=== PATIENT | female | born 1940 | race Caucasian/White ===

== ENCOUNTER → 2023-02-08 13:09 | Outpatient (CLI) | payer MEDICARE, OTHER, SELFPAY ==
--- NOTE | ~2023-02-08 | MR_ITS ---
EXAMINATION: MR lumbar spine wo con DATE: 02/08/2023 13:49 INDICATION: Lumbar radiculopathy TECHNIQUE: Magnetic resonance imaging (MRI) of the lumbar spine was performed without intravenous con trast. Sequences included sagittal T2-weighted FSE, sagittal T2-weighted FS FSE, sagittal T1-weighted FSE, and axial T2-weighted FSE. COMPARISON: None FINDINGS: 25 degree thoracolumbar levoscoliosis measured between T11 and L3 with 20 degree dextroscoliosis betw een L3 and S1. 2-3 mm retrolisthesis L1 and L2, L2 on L3, L3 on L4, L4 on L5 and L5 on S1. T11 burst fracture with one third anterior vertebral body height loss, prominent marrow edema in the vertebral body surrounding the linear low signal intensity fracture line and with 2 mm retropulsion of a small portion of the central posterior wall of the vertebral body. Lumbar vertebral body heights are normal . There is severe disc height loss with associated degenerative fibrovascular endplate changes from T 12-L1 through L5-S1. Moderate disc height loss at T9-T10. Moderate left-sided disc height loss at T10 -T11. The conus medullaris terminates at L1. There is normal signal in the caudal spinal cord. Small amount of paravertebral edema surrounding the T11 compression fracture. The following disc levels are specifically discussed: T12-L1: Disc is bulging. There is moderate bilateral facet joint osteoarthritis. There is moderate ri ght and mild left neural foraminal stenosis. There is mild central canal stenosis. L1-L2: Disc is bulging. There is moderate left and severe right facet joint osteoarthritis. There is mild left and moderate right neural foraminal stenosis. There is mild central canal stenosis. L2-L3: Posterior disc osteophyte complex. There is moderate left and severe right facet joint osteoar thritis. There is moderate right and mild to moderate left neural foraminal stenosis. There is mild c entral canal stenosis. L3-L4: Posterior disc osteophyte complex. There is moderate right and severe left facet joint osteoar thritis. There is moderate bilateral neural foraminal stenosis. There is mild central canal stenosis. L4-L5: Disc is bulging. There is mild right and severe left facet joint osteoarthritis. There is mild to moderate right and moderate left neural foraminal stenosis. There is mild central canal stenosis. L5-S1: Disc is bulging. There is mild to moderate right and severe left facet joint osteoarthritis. T here is moderate right and moderate to severe left neural foraminal stenosis. There is mild central c anal stenosis. IMPRESSION: 1. Recent-appearing T11 burst fracture with one third anterior vertebral body height loss and 2 mm re tropulsion. 2. Moderate S-shaped scoliosis of the lumbar and lower thoracic spine with severe lumbar and moderate lower thoracic spondylosis. Reviewed, dictated and finalized at location L. IMPRESSION: 1. Recent-appearing T11 burst fracture with one third anterior vertebral body h eight loss and 2 mm retropulsion. 2. Moderate S-shaped scoliosis of the lumbar and lower thoracic spine with margaret re lumbar and moderate lower thoracic spondylosis.
== END ==
PROVIDERS: PCP Registered Nurse; Referring Provider Anesthesiology Pain Medicine; Visit Provider Anesthesiology
DX: S22.081A Stable burst fracture of T11-T12 vertebra, initial encounter for closed fracture (principal); X58.XXXA Exposure to other specified factors, initial encounter; M47.26 Other spondylosis with radiculopathy, lumbar region
CPT/HCPCS: 72148

== ENCOUNTER 2023-03-11 10:45 | Outpatient (CLI) | payer MEDICARE, SELFPAY ==
--- NOTE | 2023-03-11 11:17 | ECG_ITS ---
Measurements Intervals Dyer Rate: 77 P: 12 VT: 174 QRS: -35 QRSD: 88 T: -17 QT: 366 QTc: 415 Interpretive Statements SINUS RHYTHM LEFT AXIS DEVIATION POSSIBLE LEFT ATRIAL ENLARGEMENT POOR R WAVE PROGRESSION, ANTERIOR LEADS BORDERLINE T WAVE ABNORMALITY- ANTEROLAT/INF LEADS BASELINE ARTIFACT- I, II, III, AVR, V1 BORDERLINE ECG NO PREVIOUS ECG AVAILABLE FOR COMPARISON Electronically Signed On 03-11-2023 11:45:33 CDT by Nabeel Malik D.O.
[2023-03-11 11:34] LABS: Appearance Urine Clear (Clear); Bacteria Urine None Seen /hpf; Bilirubin Urine Negative (Negative); Blood Urine Negative (Negative); Color Urine Yellow (Yellow); Glucose Urine UA Negative (Negative); Hyaline Casts Urine Present /lpf; Ketones Urine Trace mg/dL (Negative); Leukocyte Esterase Ur 1+ LEU/UL (NEGATIVE); Nitrate Urine Negative (Negative); Protein Urine Negative (Negative); RBC Urine 0-2 /hpf (0-2); Specific Grav Ur 1.031 (1.001-1.035); Squamous Epithelial Cell Urine Occasional /hpf (Few); WBC Urine 0-5 /hpf (0-3); pH Urine 5.5 (5.0-9.0)
[2023-03-11 11:40] LABS: Prothrombin Time 13.7 Seconds (11.1-14.7)
[2023-03-11 11:41] LABS: CRP < 0.5 mg/dL (<1.0); Partial Thromboplastin Time 25.5 SECONDS (22.3-36.8)
[2023-03-11 11:42] LABS: Add Urine Microscopic? YES
[2023-03-11 12:34] LABS: Erythrocyte Sedimentation Rate 14 mm/hr (0-20)
== END 2023-03-11 10:46 | disposition home or self-care (01) ==
PROVIDERS: PCP Registered Nurse; Visit Provider Anesthesiology
DX: A79.1 Rickettsialpox due to Rickettsia akari (principal); I25.10 Atherosclerotic heart disease of native coronary artery without angina pectoris; M54.16 Radiculopathy, lumbar region; R07.89 Other chest pain; R94.31 Abnormal electrocardiogram [ECG] [EKG]
CPT/HCPCS: 36415; 81001; 85610; 85652; 85730; 86140; 93005

== ENCOUNTER 2023-03-18 09:14 | Outpatient (CLI) | payer MEDICARE, SELFPAY ==
--- NOTE | ~2023-03-18 | MR_ITS ---
MRI of the thoracic spine Clinical History: Radiculopathy Technique: Axial T2-weighted and gradient images, and sagittal T1-weighted, T2-weighted, and STIR sue ges were acquired. COMPARISON: MR of the lumbar spine dated 02/08/2023 Findings: There is acute to subacute compression fracture of T11, similar to prior exam, probable mil d progressive interval loss of height. There is a mild, acute compression fracture of T12, with minim al loss of height, new from prior exam. There is a mild chronic compression deformity of T2, without marrow edema. No other fracture or subluxation seen in the thoracic spine. There is partial fusion across the T1-T2 disc space. There is mild disc bulge at T3-T4 and T4-T5, wit hout canal stenosis or cord compression. There is severe degenerative disc narrowing throughout most of the thoracic spine. There are several additional scattered mild disc bulges. No eugene spinal canal stenosis or cord compression at any level. There is probable severe bilateral n eural foraminal narrowing at T10-T11, T11-T12, and T12-L1. There are facet joint degenerative changes at these levels. No abnormal signal seen in the spinal cord. Paravertebral soft tissues are unremarkable. Impression: Acute to subacute moderate compression fracture of T11, with mild progressive loss of height since 02/08/2023. New, mild acute compression fracture of T12. Degenerative spondylosis, as above, with probably severe bilateral neural foraminal narrowing at T10- T11, T11-T12, and T12-L1. Reviewed, dictated and finalized at [facility]. Impression: Acute to subacute moderate compression fracture of T11, with mild progressive l oss of height since 02/08/2023. New, mild acute compression fracture of T12. Degenerative spondylosis, as above, with probably severe bilateral neural dayna inal narrowing at T10-T11, T11-T12, and T12-L1.
== END 2023-03-18 09:15 | disposition home or self-care (01) ==
PROVIDERS: PCP Registered Nurse; Visit Provider Anesthesiology
DX: M47.24 Other spondylosis with radiculopathy, thoracic region (principal)
CPT/HCPCS: 72146

== ENCOUNTER 2023-03-24 16:04 | Outpatient (CLI) | payer MEDICARE, SELFPAY ==
--- NOTE | ~2023-03-24 | XR_ITS ---
XR chest 2V DATE: 03/24/2023 16:30 INDICATION: Age-related osteoporosis TECHNIQUE: PA and lateral views COMPARISON: None FINDINGS: Cardiomegaly. Aortic calcification. No hilar or mediastinal enlargement. Minimal atelectasis at the lung bases. The lungs are otherwise clear. No pleural effusion or pneumothorax. Diffuse osteopenia. Right glenohumeral joint replacement. Diffuse osteopenia. Fracture deformities at T11 and T12, with vertebroplasty at T11. Degenerative changes of the cervical, thoracic and lumbar spine. IMPRESSION: Mild bibasilar atelectasis Cardiomegaly, aortic atherosclerosis Reviewed, dictated and finalized at location A.
== END 2023-03-24 16:05 | disposition home or self-care (01) ==
PROVIDERS: PCP Registered Nurse; Visit Provider Anesthesiology
DX: M80.08XA Age-related osteoporosis with current pathological fracture, vertebra(e), initial encounter for fracture (principal); I51.7 Cardiomegaly; I70.0 Atherosclerosis of aorta; J98.11 Atelectasis
CPT/HCPCS: 71046

== ENCOUNTER 2023-10-26 15:40 | Outpatient (CLI) | payer MEDICARE, SELFPAY ==
--- NOTE | ~2023-10-26 | XR_ITS ---
EXAMINATION: XR hip RT min 2V DATE: 10/26/2023 15:55 INDICATION: Right hip pain. TECHNIQUE: 2 views of right hip were obtained. COMPARISON: None. FINDINGS: Bone alignment is normal. No fracture. There is mild right hip osteoarthritis. There is sev ere lumbar spondylosis. IMPRESSION: 1. Mild right hip osteoarthritis. Reviewed, dictated and finalized at location E.
== END 2023-10-26 15:41 ==
LOC: MICIMG 15:42
PROVIDERS: PCP Registered Nurse; Visit Provider Anesthesiology
DX: M16.11 Unilateral primary osteoarthritis, right hip (principal)
CPT/HCPCS: 73502